=== PATIENT | female | born 1990 | race Caucasian/White ===

== ENCOUNTER → 2017-11-04 13:26 | Outpatient (CLI) | payer OTHER, SELFPAY ==
[2017-11-04 15:38] LABS: Add Manual Diff / Slide Review NO; Basophils Percent Auto 0.5 % (0-2); Hematocrit 41.5 % (36-46); Hemoglobin 14.6 g/dL (12.0-16.0); Lymphocytes Percent Auto 25.1 % (25-40); Mean Corpuscular HGB Conc 35.1 % (30-36); Mean Corpuscular Hemoglobin 30.8 PG (26-34); Mean Corpuscular Volume 87.8 fL (80-100); Monocytes Percent Auto 7.1 % (3-14); Neutrophils Absolute Auto 6500 /uL (3000-5900); Neutrophils Percent Auto 65.3 % (50-75); Platelet Count 157 X10^3/uL (150-400); Red Blood Cell Count 4.73 X10^6/uL (4.0-5.2); Red Cell Distribution Width 13.9 % (11.6-14.8); White Blood Cell Count 9.9 X10^3/uL (4.5-11.0)
[2017-11-04 19:03] LABS: HIV 1 and 2 Antibody NEGATIVE (NEGATIVE); Hep C Virus Ab w/Reflex Quant NEGATIVE s/c (NEGATIVE); Hepatitis B Surface Antigen NEGATIVE s/c (NEGATIVE)
[2017-11-04 19:38] LABS: Appearance Urine UA CLEAR; Bilirubin Urine UA NEGATIVE (NEGATIVE); Color Urine UA YELLOW; Glucose Urine UA NEGATIVE (Negative); Ketones Urine UA NEGATIVE (NEGATIVE); Leukocyte Esterase Urine UA NEGATIVE (NEGATIVE); Nitrite Urine UA NEGATIVE (NEGATIVE); Occult Blood Urine UA NEGATIVE (Negative); Protein Urine UA NEGATIVE (Negative); Specific Gravity Urine UA 1.025 (1.000-1.035); Urobilinogen Urine UA 0.2 E.U./dL (0.2)
[2017-11-04 19:46] LABS: Bacteria Urine Occasional (0-1); Culture Indicated Urine Cult Not Indicated; Mucus Urine 1+ (Negative); RBC Urine 0-1/HPF (0-5/HPF); Squamous Epithelial Cell Urine 1-5 /HPF; WBC Urine 1-5/HPF (0-5/HPF)
[2017-11-06 14:27] LABS: HSV 2 IGG AB < 0.90 index (< 0.90); HSV1IGG 7.35 index (< 0.90)
[2017-11-07 12:51] LABS: Rapid Plasma Reagin NON-REACTIVE
== END ==
PROVIDERS: PCP Obstetrics & Gynecology; Visit Provider Obstetrics & Gynecology
DX: Z34.90 Encounter for supervision of normal pregnancy, unspecified, unspecified trimester (principal); Z34.91 Encounter for supervision of normal pregnancy, unspecified, first trimester
CPT/HCPCS: 36415; 80055; 86787; 86850; 86900; 86901; 87086

== ENCOUNTER → 2017-12-10 15:06 | Outpatient (CLI) | payer OTHER, SELFPAY ==
[2017-12-23 09:21] LABS: Calc Gestational Age 16.3; Cigarette Smoker N; Donated Egg NOT GIVEN; Donor Egg Age NOT GIVEN; Estriol, Free 0.82 ng/mL; Inhibin A, Dimeric 126 pg/mL; Maternal Weight 283 lbs; Number of Fetuses NOT GIVEN; Previous Pregnancy Down Syndro NOT GIVEN; hCG, MoM 0.88; hCG, Serum 20.6 IU/mL
== END ==
PROVIDERS: PCP Obstetrics & Gynecology; Visit Provider Obstetrics & Gynecology
DX: Z34.82 Encounter for supervision of other normal pregnancy, second trimester (principal)
CPT/HCPCS: 36415; 82105; 82677; 84702; 86336

== ENCOUNTER → 2018-01-15 13:16 | Outpatient (CLI) | payer OTHER, SELFPAY ==
--- NOTE | 2018-01-15 13:19 | DI.US.S_ITS ---
PROCEDURE: US OB >= 14 WEEKS FETUS INDICATIONS: ANATOMY SURVEY OUTSIDE/PRIOR DATING DATA: Last menstrual period (LMP): 08/18/17. LMP-based estimated date of delivery (BASIA): 06/09/18. First dating scan (date and location): 11/04/17. Estimated date of delivery (BASIA) from first dating scan: 05/25/18. TECHNIQUE: Real-time scanning was performed of the fetus, with image documentation and biometric measurements. Endovaginal scanning: No COMPARISON: [facility], , OB >= 14 WEEKS FETUS, 12/10/2017, 14:56. FINDINGS: General: A single living intrauterine gestation is present. Presentation: Vertex. Placenta: Placental position is posterior, without previa. Amniotic fluid index: 13.9 cm, normal range is 5-24 cm. heart rate: 143 beats per minute. Maternal cervical canal: 3.8 cm long. Normal lower limit is 2.5 cm. biometrics: Biparietal diameter: 21 weeks 2 days Head circumference: 21 weeks 1 day Abdominal circumference: 21 weeks 1 day Femur length: 21 weeks 2 days Estimated gestational age from initial scan: 21 weeks 3 days Composite gestational age from present scan: 21 weeks 2 days Estimated weight and percentile: 404 g; 31st percentile Measurement variability for biometric dating: +/- 7 days from 14 weeks to 15 weeks 6 days gestation, +/- 10 days from 16 weeks to 21 weeks 6 days gestation, +/- 2 weeks from 22 weeks to 27 weeks 6 days gestation, +/- 3 weeks for 28 weeks gestation or later. weight reference: 4500 g or EFW >90/95% is considered macrosomia or large for gestational age. EFW <10% is small for gestational age. EFW 5% or less is considered intra-uterine growth restriction. Anatomic survey: Neuro: Ventricles are non-dilated at less than 10 mm. Cisterna magna and cerebellum not well-visualized. Nuchal skin fold: Normal at less than 6 mm between 14-21 weeks gestational age. Face: Not well-seen. Spine: No evidence for spina bifida. Heart: Not well-seen. Diaphragm: Diaphragm is intact. Stomach: Left-sided stomach is present. Kidneys: No hydronephrosis. Normal is less than 5 mm in 2nd trimester, less than 7 mm in 3rd trimester. Cord: 3-vessel cord has orthotopic insertion. Bladder: Normal in size. Extremities: All 4 extremities identified. IMPRESSION: 1. Normal interval growth. 2. Limited anatomic survey. Followup ultrasound recommended. Dictated by: Memo ARDON Interpreted: Lilia Aguero MD on 01/15/2018 at 16:27 Approved by: Estella Hawthorne MD, PhD on 01/15/2018 at 16:45
== END ==
PROVIDERS: PCP Physician Assistant; Visit Provider Obstetrics & Gynecology
DX: Z36.89 Encounter for other specified antenatal screening (principal); Z34.82 Encounter for supervision of other normal pregnancy, second trimester; Z3A.21 21 weeks gestation of pregnancy
CPT/HCPCS: 76811

== ENCOUNTER → 2018-02-12 16:01 | Outpatient (CLI) | payer OTHER, SELFPAY ==
[2018-02-12 17:57] LABS: Hematocrit 36.9 % (36-46); Hemoglobin 12.7 g/dL (12.0-16.0)
[2018-02-12 18:10] LABS: GTT (PREG) 1 Hour PP 50gm Dose 94 mg/dL (76-139)
== END ==
PROVIDERS: PCP Physician Assistant; Visit Provider Obstetrics & Gynecology
DX: Z34.82 Encounter for supervision of other normal pregnancy, second trimester (principal)
CPT/HCPCS: 36415; 82950; 85014; 85018; 86850

== ENCOUNTER 2018-03-26 16:30 | Outpatient (CLI) | payer OTHER, SELFPAY ==
[2018-03-26 18:08] LABS: Platelet Count 145 X10^3/uL (150-400)
[2018-03-26 18:21] LABS: Aspartate Aminotransferase 21 IU/L (14-36); BUN Creatinine Ratio 18.3 (6-22); Blood Urea Nitrogen 11 mg/dL (7-17); Estimated Glomerular Filt Rate > 60.0 mL/min (>60); Uric Acid 4.3 mg/dL (2.5-6.2)
[2018-03-26 18:43] LABS: Hemoglobin 11.8 g/dL (12.0-16.0)
[2018-03-29 18:28] LABS: Bile Acids, Total 7.8 umol/L (< 10.1)
== END 2018-03-26 18:42 | disposition home or self-care (01) ==
LOC: LAB 16:31
PROVIDERS: PCP Physician Assistant; Visit Provider Obstetrics & Gynecology
DX: O99.712 Diseases of the skin and subcutaneous tissue complicating pregnancy, second trimester (principal); L29.9 Pruritus, unspecified
CPT/HCPCS: 36415; 59025; 82239; 84450; 84550; 85014; 85018; 85049; G0378

== ENCOUNTER → 2018-04-24 13:05 | Outpatient (CLI) | payer OTHER, MEDICAID, SELFPAY ==
[2018-04-25 14:13] LABS: Strep Grp B PCR POS for Grp B Strep
== END ==
PROVIDERS: PCP Physician Assistant; Visit Provider Obstetrics & Gynecology
DX: Z3A.35 35 weeks gestation of pregnancy (principal)
CPT/HCPCS: 87653

== ENCOUNTER 2018-04-26 22:28 | Outpatient (CLI) | payer OTHER, MEDICAID, SELFPAY | END 2018-04-26 23:30 | disposition home or self-care (01) | LOC: OB 04-28 07:00 | PROVIDERS: PCP Physician Assistant; Visit Provider Family Medicine | DX: Z34.83 Encounter for supervision of other normal pregnancy, third trimester (principal); Z3A.35 35 weeks gestation of pregnancy | CPT/HCPCS: 59025; G0378; G0379 ==

== ENCOUNTER 2018-05-11 13:09 | Observation (INO) | payer OTHER, MEDICAID, SELFPAY ==
[2018-05-11 14:32] LABS: Add Manual Diff / Slide Review NO; Basophils Percent Auto 0.7 % (0-2); Eosinophils Percent Auto 1.1 % (2-4); Hematocrit 36.1 % (36-46); Hemoglobin 12.1 g/dL (12.0-16.0); Lymphocytes Percent Auto 16.3 % (25-40); Mean Corpuscular HGB Conc 33.4 % (30-36); Mean Corpuscular Hemoglobin 29.6 PG (26-34); Mean Corpuscular Volume 88.6 fL (80-100); Monocytes Percent Auto 6.6 % (3-14); Neutrophils Absolute Auto 8900 /uL (3000-5900); Neutrophils Percent Auto 75.3 % (50-75); Platelet Count 167 X10^3/uL (150-400); Red Blood Cell Count 4.08 X10^6/uL (4.0-5.2); Red Cell Distribution Width 13.9 % (11.6-14.8); White Blood Cell Count 11.8 X10^3/uL (4.5-11.0)
[2018-05-11] MEDS: LACTATED RINGERS 1,000 ML 1000 ML IV (14:37)
[2018-05-11] MEDS: ONDANSETRON 4 MG/2 ML INJ IV (14:37)
[2018-05-11 14:46] LABS: Alanine Aminotransferase 26 IU/L (9-52); Albumin 3.6 g/dL (3.5-5.0); Albumin Globulin Ratio 1.3 (1.0-2.8); Alkaline Phosphatase 83 U/L (38-126); Aspartate Aminotransferase 20 IU/L (14-36); Bilirubin Total 0.4 mg/dL (0.2-1.3); Blood Urea Nitrogen 9 mg/dL (7-17); Calcium 8.7 mg/dL (8.4-10.2); Carbon Dioxide 21 mmol/L (22-32); Chloride 106 mmol/L (98-107); Estimated Glomerular Filt Rate > 60.0 mL/min (>60); Globulin 2.7 g/dL (1.7-4.1); Glucose 80 mg/dL (70-100); HEMOLYSIS < 15 (0-50); Potassium 4.1 mmol/L (3.4-5.1); Sodium 137 mmol/L (137-145); Total Protein 6.3 g/dL (6.3-8.2); Uric Acid 4.3 mg/dL (2.5-6.2)
[2018-05-11] MEDS: CALCIUM CARBONATE 500 MG TAB 1000 MG PO (14:55)
[2018-05-11 15:03] VITALS: TEMP 36.2
[2018-05-11] MEDS: ACETAMINOPHEN 325 MG TABLET 650 MG PO (15:03)
--- NOTE | 2018-05-11 15:28 | P.TNLD_ITS ---
Visit Information Visit Information Date of evaluation: 05/11/18 Primary OB Provider: Johnna Jacobson On-call OB Provider: Lilly Hopkins Reason for Evaluation: Yes other Comments/Additional reasons for admission: Left upper quadrant pain and not feeling well with headache, nausea vomiting and a small amount diarrhea Vital Signs Vital Signs: Vital Signs - 8 hr Blood pressure 139/65, pulse of 86 05/11/18 15:03 Temperature 97.2 F L PFSH Medical History Asthma (Acute) Migraines (Acute) Surgical History H/O dilation and curettage (Acute) Hx laparoscopic cholecystectomy (Acute) Review of Systems Review of Systems Bad headache but not similar to her migraines. Patient just does not feel well. She has nausea with some episodes of emesis. She has a small amount of diarrhea. Her main complaint is severe left upper quadrant pain. Even just touching the skin is painful. Patient denies fevers or chills. No vaginal bleeding. All systems reviewed & are unremarkable except as noted in HPI and below Exam Vital Signs (past 8 hours): - 05/11/18 15:03 Temperature 97.2 F L Narrative Exam Narrative: Patient refused to have me touch her upper abdomen. Her lower abdomen is nontender. Vaginal exam by the nursing staff was unchanged from the office. She does not have significant edema of her extremities with no pain. DTRs are normal. Objective Labs Result Diagrams: 05/11/18 14:25 05/11/18 14:25 Labs: Laboratory Results - last 24 hr 05/11/18 05/11/18 14:25 14:25 WBC 11.8 H RBC 4.08 Hgb 12.1 Hct 36.1 MCV 88.6 MCH 29.6 MCHC 33.4 RDW 13.9 Plt Count 167 Neut % (Auto) 75.3 H Lymph % (Auto) 16.3 L [place] % (Auto) 6.6 Eos % (Auto) 1.1 L Baso % (Auto) 0.7 Neut # (Auto) 8900 H Sodium 137 Potassium 4.1 Chloride 106 Carbon Dioxide 21 L BUN 9 Creatinine 0.50 L Estimated GFR > 60.0 BUN/Creatinine Ratio 18.0 Glucose 80 Uric Acid 4.3 Calcium 8.7 Total Bilirubin 0.4 AST 20 ALT 26 Alkaline Phosphatase 83 Total Protein 6.3 Albumin 3.6 Globulin 2.7 Albumin/Globulin Ratio 1.3 Evaluation Evaluation Baseline heart rate: 130 Variability: Marked (>25) monitor accelerations: Present monitor decelerations: Absent Contraction Frequency (minutes): 10 Uterine Contraction Intensity: Mild Category of Tracing: I Laboratory results: Laboratory Tests 05/11/18 05/11/18 14:25 14:25 WBC 11.8 H RBC 4.08 Hgb 12.1 Hct 36.1 MCV 88.6 MCH 29.6 MCHC 33.4 RDW 13.9 Plt Count 167 Neut % (Auto) 75.3 H Lymph % (Auto) 16.3 L [place] % (Auto) 6.6 Eos % (Auto) 1.1 L Baso % (Auto) 0.7 Neut # (Auto) 8900 H Sodium 137 Potassium 4.1 Chloride 106 Carbon Dioxide 21 L BUN 9 Creatinine 0.50 L Estimated GFR > 60.0 BUN/Creatinine Ratio 18.0 Glucose 80 Uric Acid 4.3 Calcium 8.7 Total Bilirubin 0.4 AST 20 ALT 26 Alkaline Phosphatase 83 Total Protein 6.3 Albumin 3.6 Globulin 2.7 Albumin/Globulin Ratio 1.3 Diagnosis, Plan/Disposition Final Diagnosis (1) Viral gastroenteritis: Current Visit: Yes Status: Acute (2) 38 weeks gestation of : Current Visit: Yes Status: Acute Plan/Disposition Plan: Patient was given IV fluids, Tylenol, Tums. She is to push fluids and rest. Keep her previously scheduled OB appointment. Call if she has any changes. OB Disposition: home
== END 2018-05-11 15:45 | disposition home or self-care (01) ==
PROVIDERS: Specialist; Admitting Provider Obstetrics & Gynecology; PCP Physician Assistant; Visit Provider Obstetrics & Gynecology
DX: Z34.83 Encounter for supervision of other normal pregnancy, third trimester (principal); Z3A.38 38 weeks gestation of pregnancy
CPT/HCPCS: 36415; 59025; 59050; 80053; 84450; 84550; 85025; 96360; G0378; G0379; J2405

== ENCOUNTER 2018-05-12 06:42 | Outpatient (CLI) | payer OTHER, MEDICAID, SELFPAY ==
--- NOTE | 2018-05-12 10:38 | PM.OBTRLD ---
Visit Information Visit Information Date of evaluation: 05/12/18 Primary OB Provider: Johnna Jacobson On-call OB Provider: Lilly Hopkins Reason for Evaluation: Yes non-stress test non-stress test reason: decreased movement and Yes rupture of membranes PFSH Medical History Asthma (Acute) Migraines (Acute) Surgical History H/O dilation and curettage (Acute) Hx laparoscopic cholecystectomy (Acute) Evaluation Evaluation Baseline heart rate: 140 Variability: Average (6-10) monitor accelerations: Present monitor decelerations: Absent Contraction Frequency (minutes): 0 Non-invasive Membranes Rupture Test: negative Diagnosis, Plan/Disposition Final Diagnosis (1) 39 weeks gestation of : Current Visit: No Status: Acute (2) Decreased movement affecting management of mother, antepartum: Current Visit: No Status: Acute Plan/Disposition Plan: Patient had come in concerned of possible rupture membranes and decreased movement. Testing for rupture membranes was negative and nonstress test is reactive. Patient reassured. Keep her normal OB appointment.
== END 2018-05-12 07:30 | disposition home or self-care (01) ==
LOC: LABOR 06:50 → OB 15:45
PROVIDERS: PCP Physician Assistant; Visit Provider Specialist
DX: Z3A.39 39 weeks gestation of pregnancy (principal); Z34.83 Encounter for supervision of other normal pregnancy, third trimester; O36.8190 Decreased fetal movements, unspecified trimester, not applicable or unspecified
CPT/HCPCS: 59025; 84112; G0378; G0379

== ENCOUNTER 2018-05-19 06:56 | Inpatient (IN) | payer OTHER, MEDICAID, SELFPAY ==
[2018-05-19] MEDS: LACTATED RINGERS 1,000 ML 125 ML IV (07:30)
[2018-05-19] MEDS: PENICILLIN G POTASSIUM 5,000,000 UNIT in DEXTROSE 5% IN WATER 250 ML IV (07:40)
[2018-05-19] MEDS: OXYTOCIN PREMIX 30 UNIT/500 ML PLAST..BAG IV (07:58)
[2018-05-19 08:01] LABS: Add Manual Diff / Slide Review NO; Basophils Percent Auto 0.6 % (0-2); Eosinophils Percent Auto 1.5 % (2-4); Hematocrit 35.2 % (36-46); Hemoglobin 11.8 g/dL (12.0-16.0); Lymphocytes Percent Auto 9.2 % (25-40); Mean Corpuscular HGB Conc 33.6 % (30-36); Mean Corpuscular Hemoglobin 29.7 PG (26-34); Mean Corpuscular Volume 88.5 fL (80-100); Monocytes Percent Auto 9.8 % (3-14); Neutrophils Absolute Auto 6600 /uL (3000-5900); Neutrophils Percent Auto 78.9 % (50-75); Platelet Count 159 X10^3/uL (150-400); Red Blood Cell Count 3.98 X10^6/uL (4.0-5.2); Red Cell Distribution Width 14.4 % (11.6-14.8); White Blood Cell Count 8.4 X10^3/uL (4.5-11.0)
[2018-05-19 09:02] VITALS: BP 124/70
[2018-05-19] MEDS: PENICILLIN G POTASSIUM 3,000,000 UNIT/50 ML FROZ.PIGGY 100 UNIT IV ×2 (11:54→16:03)
[2018-05-19] MEDS: ONDANSETRON 4 MG/2 ML INJ IV (14:31)
[2018-05-19] MEDS: METOCLOPRAMIDE 10 MG/2 ML INJ IV (16:37)
[2018-05-20] MEDS: IBUPROFEN 600 MG TABLET PO ×3 (00:24→13:50)
[2018-05-20] MEDS: LANOLIN OINT 7 GM 1 APPLIC TOP (02:52)
[2018-05-20 07:16] LABS: Hemoglobin 11.7 g/dL (12.0-16.0)
[2018-05-20] MEDS: PRENATAL VIT,CALC/IRON/FOLIC 1 TABLET 1 TAB PO (09:30)
[2018-05-20 17:36] VITALS: BP 122/71; PULSE 70; RESP 16; TEMP 36.5
--- NOTE | 2018-07-17 14:16 | PM.OBPRVD ---
Events: Labor < 37 Weeks Delivery date: 05/19/18 Intrapartal events: None Cervical ripening method: none Induction method: per pitocin protocol Delivery augmentation: rupture of membranes Delivery monitor: external FHT and external uterine Route of delivery: Episiotomy description: None L&D Laceration Description: None Estimated blood loss (mL): 250 Anesthesia type: Epidural Complications: None Narrative: Patient complete and pushed for 14 min. At 5:14 p.m., a live female delivered spontaneously over an intact perineum. 1 loose nuchal cord reduced on the perineum. The remainder of the body delivered without difficulty and was placed on mom's abdomen. The cord was double clamped and cut. Cord bloods were obtained. Placenta delivered intact with a 3 vessel cord at 5:19 p.m.. Fundus was massaged to firm. Pitocin was given in the IV fluids. Apgars 9 at 1 min and 9 at 5 min. Weight 8 lb 0.4 oz. Epidural analgesia. . Mom and stable to recovery. Plan for aftercare: To routine care
== END 2018-05-20 18:38 | disposition home or self-care (01) | DRG 560 ==
PROVIDERS: Admitting Provider Obstetrics & Gynecology; PCP Physician Assistant; Visit Provider Obstetrics & Gynecology
DX: O99.824 Streptococcus B carrier state complicating childbirth (principal); Z3A.39 39 weeks gestation of pregnancy; Z37.0 Single live birth; O69.81X0 Labor and delivery complicated by cord around neck, without compression, not applicable or unspecified
CPT/HCPCS: 01967; 36415; 59050; 59409; 85014; 85018; 85025; 86850; 86900; 86901; G0379; J2405; J2540; J2590; J2765

== ENCOUNTER → 2018-11-11 15:38 | Outpatient (CLI) | payer OTHER, MEDICAID, SELFPAY ==
[2018-11-11 17:47] LABS: HCG Quantitative /Beta subunit 20490 mIU/mL
== END ==
PROVIDERS: PCP Physician Assistant; Visit Provider Obstetrics & Gynecology
DX: N91.2 Amenorrhea, unspecified (principal)
CPT/HCPCS: 36415; 84702

== ENCOUNTER → 2018-12-16 16:09 | Outpatient (CLI) | payer OTHER, MEDICAID, SELFPAY ==
[2018-12-16 17:04] LABS: Add Manual Diff / Slide Review NO; Basophils Absolute Auto 100 /uL (0-100); Basophils Percent Auto 0.9 % (0-2); Eosinophils Absolute Auto 300 /uL (0-450); Eosinophils Percent Auto 3.6 % (2-4); Hematocrit 44.4 % (36-46); Hemoglobin 14.9 g/dL (12.0-16.0); Lymphocytes Absolute Auto 2200 /uL (1100-4500); Lymphocytes Percent Auto 32.1 % (25-40); Mean Corpuscular HGB Conc 33.6 % (30-36); Mean Corpuscular Hemoglobin 29.4 PG (26-34); Mean Corpuscular Volume 87.2 fL (80-100); Monocytes Absolute Auto 700 /uL (0-900); Monocytes Percent Auto 9.5 % (3-14); Neutrophils Absolute Auto 3700 /uL (1500-7000); Neutrophils Percent Auto 53.9 % (50-75); Platelet Count 144 X10^3/uL (150-400); Red Blood Cell Count 5.09 X10^6/uL (4.0-5.2); Red Cell Distribution Width 15.3 % (11.6-14.8); White Blood Cell Count 6.9 X10^3/uL (4.5-11.0)
[2018-12-16 17:07] LABS: Appearance Urine UA CLEAR; Bilirubin Urine UA NEGATIVE (NEGATIVE); Color Urine UA YELLOW; Glucose Urine UA NEGATIVE (Negative); Ketones Urine UA NEGATIVE (NEGATIVE); Leukocyte Esterase Urine UA NEGATIVE (NEGATIVE); Nitrite Urine UA NEGATIVE (Negative); Occult Blood Urine UA NEGATIVE (Negative); Protein Urine UA NEGATIVE (Negative); Specific Gravity Urine UA >=1.030 (1.000-1.035); Urobilinogen Urine UA 0.2 E.U./dL (0.2)
[2018-12-16 17:55] LABS: HCG Quantitative /Beta subunit 7818.3 mIU/mL
[2018-12-16 18:49] LABS: Hepatitis B Surface Antigen NEGATIVE s/c (NEGATIVE)
[2018-12-16 19:08] LABS: Urine Chlamydia NOT DETECTED; Urine N gonorrhoeae NOT DETECTED
[2018-12-16 19:13] LABS: HIV 1 and 2 Antibody NEGATIVE (NEGATIVE); Hep C Virus Ab w/Reflex Quant NEGATIVE s/c (NEGATIVE)
[2018-12-19 15:14] LABS: RPR Screen Nonreactive (Nonreactive)
== END ==
PROVIDERS: PCP Physician Assistant; Visit Provider Obstetrics & Gynecology
DX: Z34.81 Encounter for supervision of other normal pregnancy, first trimester (principal)
CPT/HCPCS: 36415; 80055; 81003; 84702; 86703; 86787; 86803; 86850; 86900; 86901; 87086; 87491; 87591

== ENCOUNTER → 2018-12-19 09:03 | Outpatient (CLI) | payer OTHER, MEDICAID, SELFPAY ==
[2018-12-19 11:21] LABS: HCG Quantitative /Beta subunit 4256.6 mIU/mL
== END ==
PROVIDERS: PCP Physician Assistant; Visit Provider Obstetrics & Gynecology
DX: O20.0 Threatened abortion (principal)
CPT/HCPCS: 36415; 84702

== ENCOUNTER → 2020-06-22 11:59 | Outpatient (CLI) | payer OTHER, MEDICAID, SELFPAY ==
--- NOTE | 2020-06-22 12:00 | DI.US.S_ITS ---
PROCEDURE: US OB <= 14 WEEKS FETUS INDICATIONS: DATES OUTSIDE/PRIOR DATING DATA: Last menstrual period (LMP): March 30, 2020 LMP-based estimated date of delivery (BASIA): January 04, 2021. First dating scan (date and location): June 22, 2020. Estimated date of delivery (BASIA) from first dating scan: January 28, 2021. TECHNIQUE: Real-time scanning was performed of the fetus and maternal pelvic organs, with image documentation. Endovaginal scanning was also performed to better visualize the fetus and maternal ovaries. COMPARISON: None. FINDINGS: Embryo: There is a single living intrauterine gestation with an estimated sonographic gestational age of approximately 8 weeks and 4 days based off crown-rump length measuring approximately 2.0 cm. heart rate measured 173 beats per minute. Normal yolk sac is visualized. No perigestational hemorrhage. Measurement variability in dating: +/- 4 weeks by LMP, +/- 7 days by mean sac diameter (use before 6 weeks gestation if crown-rump length not able to be measured), +/- 5 days by crown-rump length (up to 8 weeks 6 days gestation), +/- 7 days by crown-rump length (up to 13 weeks 6 days gestation). Maternal organs: Ovaries were not visualized on today's study. There are prominent retroplacental veins adjacent to the gestational sac and internal cervical os. Limited images through the kidneys demonstrate no hydronephrosis. IMPRESSION: 1. Single living intrauterine gestation with an estimated sonographic gestational age of approximately 8 weeks and 4 days and estimated delivery date of approximately January 28, 2021. 2. Prominent retroplacental veins noted near the gestational sac and internal cervical os without evidence for perigestational hemorrhage. Recommend continued clinical surveillance with follow-up imaging as needed. 3. Recommend routine second-trimester anatomic screening survey. Dictated by: Juan F Gonzales M.D. on 06/22/2020 at 12:43 Approved by: Juan F Gonzales M.D. on 06/22/2020 at 12:57
== END ==
PROVIDERS: PCP Physician Assistant; Referring Provider Obstetrics & Gynecology; Visit Provider Obstetrics & Gynecology
DX: Z34.81 Encounter for supervision of other normal pregnancy, first trimester (principal); Z3A.08 8 weeks gestation of pregnancy
CPT/HCPCS: 76801; 76817

== ENCOUNTER → 2020-07-22 17:49 | Outpatient (CLI) | payer OTHER, MEDICAID, SELFPAY ==
[2020-07-22 17:52] LABS: RBC Urine None Seen (0-5/HPF)
[2020-07-22 18:09] LABS: Add Manual Diff / Slide Review NO; Basophils Absolute Auto 100 /uL (0-100); Basophils Percent Auto 0.9 % (0-2); Eosinophils Absolute Auto 300 /uL (0-450); Eosinophils Percent Auto 4.1 % (2-4); Hematocrit 39.2 % (36-46); Hemoglobin 12.9 g/dL (12.0-16.0); Lymphocytes Absolute Auto 2200 /uL (1100-4500); Lymphocytes Percent Auto 28.9 % (25-40); Mean Corpuscular HGB Conc 32.8 % (30-36); Mean Corpuscular Hemoglobin 26.3 PG (26-34); Mean Corpuscular Volume 80.1 fL (80-100); Monocytes Absolute Auto 600 /uL (0-900); Monocytes Percent Auto 7.4 % (3-14); Neutrophils Absolute Auto 4500 /uL (1500-7000); Neutrophils Percent Auto 58.7 % (50-75); Platelet Count 156 X10^3/uL (150-400); White Blood Cell Count 7.6 X10^3/uL (4.5-11.0)
[2020-07-22 18:14] LABS: Appearance Urine UA SL CLOUDY; Bilirubin Urine UA NEGATIVE (NEGATIVE); Glucose Urine UA NEGATIVE (Negative); Ketones Urine UA 1+ (NEGATIVE); Leukocyte Esterase Urine UA TRACE (NEGATIVE); Nitrite Urine UA NEGATIVE (Negative); Occult Blood Urine UA NEGATIVE (Negative); Protein Urine UA NEGATIVE (Negative); Specific Gravity Urine UA 1.015 (1.000-1.035); Urobilinogen Urine UA 0.2 E.U./dL (0.2)
[2020-07-22 18:22] LABS: pH Urine UA 5.5 (4.5-8.0)
[2020-07-22 18:23] LABS: Color Urine UA Straw
[2020-07-22 18:36] LABS: WBC Urine 5-10/HPF (0-5/HPF)
[2020-07-22 18:37] LABS: Amorphous Sediment Urine 1+; Bacteria Urine Few (2-10); Squamous Epithelial Cell Urine 1-5 /HPF (0-5/HPF)
[2020-07-22 19:29] LABS: Hepatitis B Surface Antigen NEGATIVE s/c (NEGATIVE)
[2020-07-22 19:43] LABS: HIV 1 & 2 Ab/Ag 4th Gen Combo NEGATIVE (NEGATIVE); Hep C Virus Ab w/Reflex Quant NEGATIVE s/c (NEGATIVE)
[2020-07-23 04:16] LABS: RPR Screen Non Reactive (Non Reactive)
[2020-07-23 07:09] LABS: Varicella IgG Antibody 619 index (Immune >165)
== END ==
PROVIDERS: Referring Provider Obstetrics & Gynecology; Visit Provider Obstetrics & Gynecology
DX: Z34.81 Encounter for supervision of other normal pregnancy, first trimester (principal); N39.0 Urinary tract infection, site not specified
CPT/HCPCS: 36415; 80055; 81001; 86787; 86803; 86850; 86900; 86901; 87086; 87389

== ENCOUNTER → 2020-08-22 10:58 | Outpatient (CLI) | payer OTHER, MEDICAID, SELFPAY ==
[2020-08-22 12:24] LABS: Add Manual Diff / Slide Review NO; Basophils Absolute Auto 0 /uL (0-100); Basophils Percent Auto 0.5 % (0-2); Eosinophils Absolute Auto 500 /uL (0-450); Eosinophils Percent Auto 4.5 % (2-4); Hematocrit 35.1 % (36-46); Hemoglobin 11.7 g/dL (12.0-16.0); Lymphocytes Absolute Auto 2400 /uL (1100-4500); Lymphocytes Percent Auto 24.6 % (25-40); Mean Corpuscular HGB Conc 33.4 % (30-36); Mean Corpuscular Hemoglobin 26.6 PG (26-34); Mean Corpuscular Volume 79.6 fL (80-100); Monocytes Absolute Auto 700 /uL (0-900); Monocytes Percent Auto 6.8 % (3-14); Neutrophils Absolute Auto 6300 /uL (1500-7000); Neutrophils Percent Auto 63.6 % (50-75); Platelet Count 231 X10^3/uL (150-400); Red Cell Distribution Width 16.7 % (11.6-14.8)
[2020-08-22 12:47] LABS: Free T4, Direct Thyroxine 0.89 ng/dL (0.78-2.19)
[2020-08-22 13:01] LABS: Thyroid Stimulating Hormone 2.22 uIU/mL (0.47-4.68)
[2020-08-25 19:36] LABS: AFP, Serum 24.8 ng/mL (.); Inhibin A, Dimeric 76.83 pg/mL (.); Inhibin A, MoM 0.65 (.); Maternal Ethnicity Caucasian (.); Maternal Weight 265 lbs (.); Number of Fetuses No (.); OSBR Risk 1 IN 10000 (.); Results Report (.); Test Results *Screen Negative* (.); hCG, MoM 0.43 (.); hCG, Serum 10511 mIU/mL (.)
== END ==
PROVIDERS: Referring Provider Obstetrics & Gynecology; Visit Provider Obstetrics & Gynecology
DX: Z34.82 Encounter for supervision of other normal pregnancy, second trimester (principal); F32.9 Major depressive disorder, single episode, unspecified; Z41.9 Encounter for procedure for purposes other than remedying health state, unspecified; Z3A.17 17 weeks gestation of pregnancy
CPT/HCPCS: 36415; 82105; 82677; 84439; 84443; 84702; 85025; 86336

== ENCOUNTER → 2020-09-13 10:42 | Outpatient (CLI) | payer OTHER, MEDICAID, SELFPAY ==
--- NOTE | 2020-09-13 10:43 | DI.US.S_ITS ---
PROCEDURE: OB >= 14 WEEKS FETUS INDICATIONS: Anatomy Scan OUTSIDE/PRIOR DATING DATA: Last menstrual period (LMP): March 30, 2020. LMP-based estimated date of delivery (BASIA): January 04, 2021 First dating scan (date and location): June 22, 2020. Estimated date of delivery (BASIA) from first dating scan: January 28, 2021. TECHNIQUE: Real-time scanning was performed of the fetus, with image documentation and biometric measurements. Endovaginal scanning: Performed COMPARISON: [facility], OB >= 14 WEEKS FETUS, 08/22/2020, 11:25. [facility] OB <= 14 WEEKS FETUS, 07/25/2020, 15:18. [facility] OB <= 14 WEEKS FETUS, 06/22/2020, 12:09. FINDINGS: General: A single living intrauterine gestation is present. Presentation: Breech Placenta: Placental position is posterior, without previa. Amniotic fluid index: 11.8 cm, normal range is 5-24 cm. heart rate: 150 beats per minute. Maternal cervical canal: Closed and 4.2 cm long. Normal lower limit is 2.5 cm. biometrics: Biparietal diameter: 19 weeks 5 days Head circumference: 20 weeks 1 days Abdominal circumference: 22 weeks 4 days Femur length: 20 weeks 6 days Estimated gestational age from initial scan: 20 weeks 3 days. Composite gestational age from present scan: 20 weeks 6 days Estimated weight and percentile: 429 grams, 94th percentile. Measurement variability for biometric dating: +/- 7 days from 14 weeks to 15 weeks 6 days gestation, +/- 10 days from 16 weeks to 21 weeks 6 days gestation, +/- 2 weeks from 22 weeks to 27 weeks 6 days gestation, +/- 3 weeks for 28 weeks gestation or later. weight reference: 4500 g or EFW >90/95% is considered macrosomia or large for gestational age. EFW <10% is small for gestational age. EFW 5% or less is considered intra-uterine growth restriction. Anatomic survey: Neuro: Ventricles are non-dilated at less than 10 mm. Cisterna magna is normal at 3-11 mm. Cerebellum is normal in size and morphology. Nuchal skin fold: Normal at less than 6 mm between 14-21 weeks gestational age. Face: Nose and lips, facial profile are normal. Spine: No evidence for spina bifida. Sacral spine not well seen due to position. Heart: 4-chambered heart is present, with normal ventricular outflow tracts. Diaphragm: Diaphragm is intact. Stomach: Left-sided stomach is present. Kidneys: No hydronephrosis. Normal is less than 5 mm in 2nd trimester, less than 7 mm in 3rd trimester. Cord: 3-vessel cord has orthotopic insertion. Bladder: Normal in size. Extremities: All 4 extremities identified. IMPRESSION: 1. Single living intrauterine with ultrasound estimated gestational age of 20 weeks 6 days and expected age of 20 weeks 3 days based on initial ultrasound. 2. Normal amniotic fluid index. 3. Estimated weight 429 grams which corresponds to 94th percentile for gestational age. 4. Poor visualization of the sacral spine due to position, recommend follow-up imaging if clinically indicated. anatomic survey otherwise normal. Dictated by: Estella Hawthorne MD, PhD on 09/13/2020 at 17:34 Approved by: Estella Hawthorne MD, PhD on 09/13/2020 at 17:40
== END ==
PROVIDERS: Referring Provider Obstetrics & Gynecology; Visit Provider Obstetrics & Gynecology
DX: Z34.82 Encounter for supervision of other normal pregnancy, second trimester (principal); Z3A.20 20 weeks gestation of pregnancy
CPT/HCPCS: 76811

== ENCOUNTER → 2020-10-31 08:57 | Outpatient (CLI) | payer OTHER, MEDICAID, SELFPAY ==
[2020-10-31 11:04] LABS: Hematocrit 33.7 % (36-46); Hemoglobin 11.1 g/dL (12.0-16.0)
[2020-10-31 12:10] LABS: GTT (PREG) 1 Hour PP 50gm Dose 116 mg/dL (76-139)
== END ==
PROVIDERS: Referring Provider Obstetrics & Gynecology; Visit Provider Obstetrics & Gynecology
DX: Z34.82 Encounter for supervision of other normal pregnancy, second trimester (principal); Z3A.26 26 weeks gestation of pregnancy
CPT/HCPCS: 36415; 82950; 85014; 85018; 86850

== ENCOUNTER 2020-12-06 09:20 | Outpatient (CLI) | payer OTHER, MEDICAID, SELFPAY ==
--- NOTE | 2020-12-06 | DI.US.S_ITS ---
PROCEDURE: US OB LIMITED INDICATIONS: CONTRACTIONS. CERVICAL LENGTH AND GROWTH OUTSIDE/PRIOR DATING DATA: Last menstrual period (LMP): Unknown LMP-based estimated date of delivery (BASIA): Unknown First dating scan (date and location): 06/22/2020 Estimated date of delivery (BASIA) from first dating scan: 01/28/2021 TECHNIQUE: Real-time scanning was performed of the fetus, with biometrics and image documentation. Endovaginal scanning: Not performed [facility], , US OB >= 14 WEEKS FETUS, 11/15/2020, 13:39. FINDINGS: A single living intrauterine gestation is present. Presentation: Breech. Placenta: Placental position is posterior right, without previa. Amniotic fluid index: 9.1 cm, normal range is 5-24 cm. heart rate: 153 beats per minute. Maternal cervical canal: 3.4 cm long. Normal lower limit is 2.5 cm. No funneling. Estimated gestational age from initial scan: 32 weeks 3 days. Estimated gestational age from current scan: 32 weeks 1 day. Estimated gestational weight: 2007 g, 44th percentile. BPD: 7.6 cm, 30 weeks 4 days. 4th percentile. HC: 29.6 cm, 32 weeks 5 days. 21st percentile. AC: 28.9 cm, 32 weeks 6 days. 63rd percentile. FL: 6.3 cm, 32 weeks 4 days. 40 second percentile. IMPRESSION: 1. [place] living intrauterine at 32 weeks 1 day based on today's ultrasound. Breech position. Estimated weight is in the 44th percentile overall. The BPD is in the 4th percentile. 2. Normal placenta and amniotic fluid. Dictated by: Waldemar Morris M.D. on 12/06/2020 at 12:21 Approved by: Waldemar Morris M.D. on 12/06/2020 at 12:28
--- NOTE | 2020-12-06 10:11 | PM.OBTRLD ---
Visit Information Visit Information Date of evaluation: 12/06/20 Primary OB Provider: Johnna Jacobson On-call OB Provider: Jeremias Marks Reason for Evaluation: Yes pre-term labor Comments/Additional reasons for admission: Patient began having pains last night and presents this morning with contractions. She denies any bleeding, leakage of fluid per vagina or change in vaginal discharge. She states her baby is active. Her contractions are irregular but in the hands and increasing in their level of intensity. [facility] Medical History Anxiety Asthma Depression Foot fracture, left GERD (gastroesophageal reflux disease) H/O transfusion of packed red blood cells (~2015) HPV in female Migraines Pneumonia PTSD (post-traumatic stress disorder) Rh negative state in antepartum period Meehan-Jesus syndrome (spontaneous vaginal delivery) (~2007) (spontaneous vaginal delivery) (~2017) Surgical History H/O colposcopy with cervical biopsy (~11/2017) H/O dilation and curettage (~2015) H/O dilation and curettage (~09/2018) H/O wisdom tooth extraction (~2018) History of esophagogastroduodenoscopy (EGD) Hx laparoscopic cholecystectomy Family History Mother Depression Anxiety Panic attacks Father Arrhythmia Grandmother Diabetes mellitus Hypertension Arthritis Grandfather Adrenoleukodystrophy Grandmother Heart disease Grandfather Heart disease Altered cardiac tissue perfusion Sister Personality disorder Depression Panic attacks Anxiety Endometriosis H/O: hysterectomy Family/Other Diabetes mellitus Family/Other Altered cardiac tissue perfusion Social History marital status: number of children: 2 household members: spouse and children lives independently: Yes pets and animals: Yes education level: college (Some : [employer]) occupational status: unemployed current occupational exposures/hazards: No deepa/alevism: [employer] special deepa needs: No Smoking Status: Never smoker second hand exposure: No alcohol intake: never substance use type: does not use Exam Const General: cooperative, in distress and anxious HENMT Head: normocephalic and atraumatic Eyes General: appearance normal, both eyes and all related structures Conjunctivae: conjunctivae normal Sclera: sclerae normal EOM: EOM intact bilaterally GI Inspection: other (Gravid, FH c/w EGA) Manual OB Exam: dilated fingertip, effaced 25%, station high and other (US based CL > 3.0 cm) Psych Appearance: grossly normal Mental Status: mental status grossly normal Speech and Movement: speech and movement normal Mood: anxious mood Affect: normal affect Attitude: cooperative Thought Process: normal Thought Content: normal Judgment: judgment good Evaluation Evaluation Contraction Frequency (minutes): 4 Uterine Contraction Intensity: Moderate Category of Tracing: Reactive
[2020-12-06] MEDS: TERBUTALINE 1 MG/ML VIAL 0.25 MG SUBCUT ×2 (10:18→11:10)
[2020-12-06 10:55] LABS: Appearance Urine UA CLEAR; Bilirubin Urine UA 1+ (NEGATIVE); Color Urine UA YELLOW; Glucose Urine UA NEGATIVE (Negative); Ketones Urine UA 3+ (NEGATIVE); Leukocyte Esterase Urine UA TRACE (NEGATIVE); Nitrite Urine UA NEGATIVE (Negative); Occult Blood Urine UA NEGATIVE (Negative); Protein Urine UA 2+ (Negative); Specific Gravity Urine UA 1.025 (1.000-1.035)
[2020-12-06] MEDS: LACTATED RINGERS 1,000 ML 1000 ML IV (11:15)
[2020-12-06 11:21] LABS: Bacteria Urine Few (2-10); Culture Indicated Urine Specimen Cultured; Ictotest Urine Positive (Negative); Mucus Urine 1+ (Negative); RBC Urine 1-5/HPF (0-5/HPF); Squamous Epithelial Cell Urine 1-5 /HPF (0-5/HPF); WBC Urine 1-5/HPF (0-5/HPF)
[2020-12-06] MEDS: NIFEdipine 10 MG CAPSULE PO ×4 (12:10→13:15)
[2020-12-06] MEDS: CEFAZOLIN 1 GM VIAL 2 GM IV (12:25)
[2020-12-06 12:42] LABS: Fetal Fibronectin Positive
== END 2020-12-06 13:45 | disposition home or self-care (01) ==
LOC: LABOR 10:19 → OB 12-07 11:34
PROVIDERS: Referring Provider Obstetrics & Gynecology; Visit Provider Obstetrics & Gynecology
DX: O26.893 Other specified pregnancy related conditions, third trimester (principal); R10.30 Lower abdominal pain, unspecified; M54.9 Dorsalgia, unspecified; Z3A.32 32 weeks gestation of pregnancy
CPT/HCPCS: 59025; 59050; 76815; 81001; 82731; 87086; 96360; G0378; G0379; J0690

== ENCOUNTER → 2021-04-03 15:21 | Outpatient (CLI) | payer OTHER, MEDICAID, SELFPAY ==
[2021-04-03 17:01] LABS: HCG Quantitative /Beta subunit 8280 mIU/mL
== END ==
PROVIDERS: Referring Provider Obstetrics & Gynecology; Visit Provider Obstetrics & Gynecology
DX: N91.2 Amenorrhea, unspecified (principal)
CPT/HCPCS: 36415; 84702

== ENCOUNTER → 2021-04-05 15:41 | Outpatient (CLI) | payer OTHER, MEDICAID, SELFPAY ==
[2021-04-05 18:24] LABS: HCG Quantitative /Beta subunit 14492 mIU/mL
== END ==
PROVIDERS: Referring Provider Obstetrics & Gynecology; Visit Provider Obstetrics & Gynecology
DX: N91.2 Amenorrhea, unspecified (principal)
CPT/HCPCS: 36415; 84702

== ENCOUNTER → 2021-06-21 16:00 | Outpatient (CLI) | payer OTHER, MEDICAID, SELFPAY ==
[2021-06-21 16:51] LABS: Appearance Urine UA CLEAR; Bilirubin Urine UA NEGATIVE (NEGATIVE); Color Urine UA YELLOW; Glucose Urine UA NEGATIVE (Negative); Ketones Urine UA NEGATIVE (NEGATIVE); Leukocyte Esterase Urine UA NEGATIVE (NEGATIVE); Nitrite Urine UA NEGATIVE (Negative); Occult Blood Urine UA NEGATIVE (Negative); Protein Urine UA NEGATIVE (Negative); Specific Gravity Urine UA 1.015 (1.000-1.035); Urobilinogen Urine UA 0.2 E.U./dL (0.2)
[2021-06-21 16:52] LABS: pH Urine UA 5.5 (4.5-8.0)
[2021-06-21 17:11] LABS: Add Manual Diff / Slide Review NO; Basophils Absolute Auto 0 /uL (0-100); Basophils Percent Auto 0.5 % (0-2); Eosinophils Absolute Auto 300 /uL (0-450); Eosinophils Percent Auto 4.5 % (2-4); Hematocrit 37.9 % (36-46); Hemoglobin 13.1 g/dL (12.0-16.0); Lymphocytes Absolute Auto 2200 /uL (1100-4500); Lymphocytes Percent Auto 30.3 % (25-40); Mean Corpuscular HGB Conc 34.6 % (30-36); Mean Corpuscular Hemoglobin 28.9 PG (26-34); Mean Corpuscular Volume 83.5 fL (80-100); Monocytes Absolute Auto 600 /uL (0-900); Monocytes Percent Auto 8.4 % (3-14); Neutrophils Absolute Auto 4200 /uL (1500-7000); Neutrophils Percent Auto 56.3 % (50-75); Platelet Count 160 X10^3/uL (150-400); Red Blood Cell Count 4.54 X10^6/uL (4.0-5.2); Red Cell Distribution Width 16.5 % (11.6-14.8); White Blood Cell Count 7.4 X10^3/uL (4.5-11.0)
[2021-06-22 07:04] LABS: RPR Screen Non Reactive (Non Reactive)
[2021-06-22 10:10] LABS: Varicella IgG Antibody 425 index (Immune >165)
[2021-06-22 16:53] LABS: Hepatitis B Surface Antigen NEGATIVE s/c (NEGATIVE)
[2021-06-22 17:06] LABS: HIV 1 & 2 Ab/Ag 4th Gen Combo NEGATIVE (NEGATIVE); Hep C Virus Ab w/Reflex Quant NEGATIVE s/c (NEGATIVE)
[2021-06-23 22:12] LABS: AFP, Serum 20.1 ng/mL (.); Calc Gestational Age Ultrasound (.); Estriol, Free 1.22 ng/mL (.); Inhibin A, Dimeric 66.23 pg/mL (.); Inhibin A, MoM 0.59 (.); Maternal Ethnicity Caucasian (.); Maternal Weight 280 lbs (.); Number of Fetuses No (.); OSBR Risk 1 IN 10000 (.); Results Report (.); Test Results *Screen Negative* (.); hCG, MoM 0.81 (.); hCG, Serum 19053 mIU/mL (.)
== END ==
PROVIDERS: Referring Provider Obstetrics & Gynecology; Visit Provider Obstetrics & Gynecology
DX: Z34.81 Encounter for supervision of other normal pregnancy, first trimester (principal); Z34.82 Encounter for supervision of other normal pregnancy, second trimester; Z3A.16 16 weeks gestation of pregnancy
CPT/HCPCS: 36415; 80055; 81003; 82105; 82677; 84702; 86336; 86787; 86803; 86850; 86900; 86901; 87086; 87389

== ENCOUNTER → 2021-08-22 15:01 | Outpatient (CLI) | payer OTHER, MEDICAID, SELFPAY ==
[2021-08-22 18:05] LABS: Add Manual Diff / Slide Review NO; Basophils Absolute Auto 0 /uL (0-100); Basophils Percent Auto 0.4 % (0-2); Eosinophils Absolute Auto 400 /uL (0-450); Eosinophils Percent Auto 3.9 % (2-4); Lymphocytes Absolute Auto 2000 /uL (1100-4500); Lymphocytes Percent Auto 19.6 % (25-40); Mean Corpuscular HGB Conc 33.2 % (30-36); Mean Corpuscular Hemoglobin 28.2 PG (26-34); Monocytes Absolute Auto 600 /uL (0-900); Monocytes Percent Auto 6.3 % (3-14); Neutrophils Absolute Auto 7000 /uL (1500-7000); Neutrophils Percent Auto 69.8 % (50-75); Platelet Count 173 X10^3/uL (150-400); Red Blood Cell Count 4.24 X10^6/uL (4.0-5.2); Red Cell Distribution Width 15.2 % (11.6-14.8); White Blood Cell Count 10.1 X10^3/uL (4.5-11.0)
[2021-08-22 18:32] LABS: GTT (PREG) 1 Hour PP 50gm Dose 100 mg/dL (76-139)
== END ==
PROVIDERS: Obstetrics & Gynecology; Referring Provider Obstetrics & Gynecology; Visit Provider Obstetrics & Gynecology
DX: Z34.82 Encounter for supervision of other normal pregnancy, second trimester (principal); Z3A.25 25 weeks gestation of pregnancy
CPT/HCPCS: 36415; 82950; 85025; 86850

== ENCOUNTER → 2021-11-07 14:37 | Outpatient (CLI) | payer OTHER, MEDICAID, SELFPAY ==
[2021-11-08 15:31] LABS: Strep Grp B PCR POS for Grp B Strep
== END ==
PROVIDERS: Visit Provider Obstetrics & Gynecology
DX: Z34.83 Encounter for supervision of other normal pregnancy, third trimester (principal); Z3A.36 36 weeks gestation of pregnancy
CPT/HCPCS: 87653

== ENCOUNTER 2021-11-27 05:41 | Inpatient (IN) | payer OTHER, MEDICAID, SELFPAY ==
[2021-11-27] VITALS (8 sets, daily range): BP systolic 94–122; BP diastolic 50–68; PULSE 52–70; RESP 9–19; TEMP 36.2–36.3; O2SAT 98–100
[2021-11-27] MEDS: LACTATED RINGERS 1,000 ML 100 ML IV ×3 (06:00→17:59)
[2021-11-27 07:03] LABS: Add Manual Diff / Slide Review NO; Basophils Absolute Auto 0 /uL (0-100); Basophils Percent Auto 0.5 % (0-2); Eosinophils Absolute Auto 300 /uL (0-450); Eosinophils Percent Auto 2.6 % (2-4); Hematocrit 36.1 % (36-46); Hemoglobin 12.2 g/dL (12.0-16.0); Lymphocytes Absolute Auto 2000 /uL (1100-4500); Lymphocytes Percent Auto 18.8 % (25-40); Mean Corpuscular HGB Conc 33.7 % (30-36); Mean Corpuscular Hemoglobin 28.1 PG (26-34); Mean Corpuscular Volume 83.4 fL (80-100); Monocytes Absolute Auto 800 /uL (0-900); Monocytes Percent Auto 8.1 % (3-14); Neutrophils Absolute Auto 7300 /uL (1500-7000); Platelet Count 173 X10^3/uL (150-400); Red Blood Cell Count 4.33 X10^6/uL (4.0-5.2); Red Cell Distribution Width 16.5 % (11.6-14.8); White Blood Cell Count 10.4 X10^3/uL (4.5-11.0)
[2021-11-27 07:42] LABS: COVID19 -Nasal RAPID Negative (Negative)
--- NOTE | 2021-11-27 07:43 | P.HPOB_ITS ---
OB HPI Date/Time Date of admission: 11/27/21 Date Patient Seen: 11/27/21 Time Patient Seen: 07:43 History of Present Condition Chief complaint: maternity BASIA Calculator Estimated Delivery Date Method Current WG Current Estimate 12/04/21 LMP (Uncertain) 39w 0d Estimated Gestational Age (weeks): 39 : 6 Para: 3 care: good care, initiated at week # (8), number of visits (11) and pounds weight gain (59) Dating criteria OB: LMP confirmed by 1st trimester US Ultrasounds: normal 1st trimester US and normal mid trimester US Obstetrical complications: none Medical complications OB: none Indications Operative indications ( section): previous uterine surgery Preadmission Labs Last OB Lab Results: Blood Type A Negative 11/27/21 06:44 Antibody Screen Positive 11/27/21 06:44 Hematocrit 36.1 % (36-46) 11/27/21 06:44 Hemoglobin 12.2 g/dL (12.0-16.0) 11/27/21 06:44 Hepatitis B Surface Antigen Negative s/c (NEGATIVE) 06/21/21 16 :11 Hepatitis C Antibody Negative s/c (NEGATIVE) 06/21/21 16:11 Rubella Antibody 178.0 IU/mL (>15) 06/21/21 16:11 Varicella-Zoster IgG Antibody 425 index (Immune >165) 06/21/21 16:11 Glucose 1 Hour 100 mg/dL (76-139) 08/22/21 16:45 Group B Streptococcus (PCR) Pos for grp b strep H 11/07/21 14:3 7 -: Chlamydia screen: negative, Gonorrhea screen: negative and Urine: negative -: PAP smear: Normal Genetic Screens: Quad screen: Normal External Labs -: Urine: negative Prior (ies) Past Pregnancies Del. Date GA/Weeks Labor Lgth Wt Sex Route Outcome Anesthesia Place Delv Breastfeed Preg Comp Name 11/02/07 38 14 7 lb 14 oz Female vaginal forceps vacuum live - full term epidural [place] 6 months none [place] 06/17/15 ?9 spontaneous [place] spontaneous 05/19/18 39.2 4 8 lb 4 oz Female vaginal live - full ter m epidural [facility] Jacobson 6 months other Evelina 09/15/18 9 spontaneous spontaneous 12/20/20 35.4 0 5 lb 12 oz Male live - [facility] in [place], [place] delivery Delivery Date: 11/02/07 Last Updated by: Lyric Mckinley R.N. *Borderline GDM. *Induction to enhance labor. *Episiotomy. *PPD : counselling support allergic to depression meds. Delivery Date: 06/17/15 Last Updated by: Lyric Mckinley R.N. *Hemorrhage : D&C with blood transfusion. *Unsure of exact dates. Delivery Date: 05/19/18 Last Updated by: Lyric Mckinley R.N. *Hyperemesis Gravidarum. *PPD - worse than the first time. Really rough. Delivery Date: 09/15/18 Last Updated by: Lyric Mckinley R.N. *Missed AB at 12 weeks. *D&C and blood transfusion. Delivery Date: 12/20/20 Last Updated by: Fátima Beal R.N. PPROM, breech, to C/S. Suspected intrauterine infection, but not confirmed. Later Had incisional infection, tx'd with antibiotics. Did OK with PP Depression, had enough support. Evaluation Evaluation Baseline heart rate: 140 Variability: Moderate (11-25) monitor accelerations: Present Monitor Decelerations: Absent Status: Category l [facility] Medical History (Updated 04/25/21 @ 14:06 by Johnna Jacobson MD) Anxiety Asthma Depression Foot fracture, left GERD (gastroesophageal reflux disease) H/O transfusion of packed red blood cells (~2015) HPV in female Migraines Pneumonia PTSD (post-traumatic stress disorder) Rh negative state in antepartum period Meehan-Jesus syndrome (spontaneous vaginal delivery) (~2007) (spontaneous vaginal delivery) (~2017) Surgical History (Updated 04/25/21 @ 14:06 by Johnna Jacobson MD) H/O colposcopy with cervical biopsy (~11/2017) H/O dilation and curettage (~2015) H/O dilation and curettage (~09/2018) H/O wisdom tooth extraction (~2018) History of section (~12/20/20) History of esophagogastroduodenoscopy (EGD) Hx laparoscopic cholecystectomy Family History Mother Depression Anxiety Panic attacks Father Arrhythmia Grandmother Diabetes mellitus Hypertension Arthritis Grandfather Adrenoleukodystrophy Grandmother Heart disease Grandfather Heart disease Altered cardiac tissue perfusion Sister Personality disorder Depression Panic attacks Anxiety Endometriosis H/O: hysterectomy Family/Other Diabetes mellitus Family/Other Altered cardiac tissue perfusion Social History marital status: number of children: 3 household members: spouse and children lives independently: Yes caregiver/support person: No pets and animals: Yes education level: college (Some : [employer]) occupational status: unemployed ([employer] current occupational exposures/hazards: No deepa/moravian: Mormonism special deepa needs: No seatbelt use: always do you feel safe at home: Yes Smoking Status: Never smoker second hand exposure: No alcohol intake: never substance use type: does not use during the past year weight has: decreased > 10 lbs well-balanced diet: daily or most days caffeine: No Type(s) of exercise: walking (with kids.) and normal ROM and activity (Homeschooling, busy with kids.) frequency: daily Meds Home Medications and Allergies Home Medications Medication Instructions Recorded Confirmed Type prenat.vits,yissel,afr-zoiy-kcbte 1 tab PO DAILY 12/08/18 11/27/21 History Allergies Allergy/AdvReac Type Severity Reaction Status Date / Time methylphenidate Allergy Severe Hives, Verified 11/21/21 08:43 [From Ritalin] Passing out. sertraline [From Zoloft] Allergy Severe Hives Verified 11/21/21 08:43 Sulfa (Sulfonamide Allergy Severe Full-Body Verified 11/21/21 08:43 Antibiotics) Rash hydroxyprogesterone Allergy Intermediate Hives Verified 11/21/21 08:43 [From [place]] lamotrigine [From Lamictal] AdvReac Severe SSRI's : Verified 11/21/21 08:43 Spencer Jesus's Syndrome; Hives OB Exam Narrative Exam Narrative: Generally: Patient is sitting up in bed, no acute distress Lungs: Clear to auscultation bilaterally Cardiovascular: Regular rate and rhythm Fundal height: 43 cm Estimated weight: 8 lb Extremities: 1+ edema, 1+ DTRs Objective Labs Result Diagrams: 11/27/21 06:44 Labs: Laboratory Results - last 24 hr 11/27/21 11/27/21 11/27/21 06:44 06:44 06:44 WBC 10.4 RBC 4.33 Hgb 12.2 Hct 36.1 MCV 83.4 MCH 28.1 MCHC 33.7 RDW 16.5 H Plt Count 173 Neut % (Auto) 70.0 Lymph % (Auto) 18.8 L Mora % (Auto) 8.1 Eos % (Auto) 2.6 Baso % (Auto) 0.5 Neut # (Auto) 7300 H Lymph # (Auto) 2000 Mora # (Auto) 800 Eos # (Auto) 300 Baso # (Auto) 0 SARS-CoV-2 (PCR) Negative Blood Type A Negative Antibody Screen Positive Assessment and Plan Assessment and Plan Assessment and Plan narrative: Assessment: 31-year-old 6 para 3 at 39 weeks gestation with a history of a section Plan: Repeat low-transverse section The risks, benefits, and alternatives to the procedure were explained to the patient. The risks including bleeding, infection, injury to the bowel, bladder, or ureters. She understands these risks and agrees to proceed. A full par Q was held and consent form was signed. Time Spent with Patient Total time spent with greater than 50% in coordination of care (as documented) at patient's floor/unit and/or counseling patient:: 15-24 minutes
--- NOTE | 2021-11-27 07:48 | PM.PREOP ---
Pre-operative Note COVID-19 COVID-19 status: Negative Result date/Date tested (Pos, Neg/Pending): 11/27/21 Criteria for continued procedure: Non-surgical alternatives not available or appropriate per current SOC Interval Note History & Physical reviewed/Exam performed by Physician: Yes Changes to H&P: No H&P completed within 30 days and has changed as indicated here:: 11/27/21
[2021-11-27] MEDS: CITRIC ACID/SODIUM CITRATE 15 ML SOLUTION 30 ML PO (07:55)
[2021-11-27] MEDS: ACETAMINOPHEN 325 MG TABLET 975 MG PO (07:55)
[2021-11-27] MEDS: LACTATED RINGERS 1,000 ML 1000 ML IV (08:05)
[2021-11-27] MEDS: CEFAZOLIN 2 GM/20 ML SYRINGE 3 GM IV (08:20)
--- NOTE | 2021-11-27 08:51 | SUR.OPER ---
Supine on Padded OR bed, head on pillow, safety belt at thigh, arms secured on padded arm boards at <90 degrees abduction. Bump under right buttock. Legs uncrossed with pillow under knees, gel pad to heels, tape over blanket to lower legs.
--- NOTE | 2021-11-27 08:53 | SUR.OPER ---
Viable baby boy was born at 0841 on 11/27/21. 2 sets of blood and placenta labelled and sent with the L&D nurse. Weight= 8 Ib.
--- NOTE | 2021-11-27 09:23 | P.OP_ITS ---
Operative Date/Time/Diagnoses Date of procedure: 11/27/21 Time of procedure: 09:23 Pre-op diagnosis: Thirty-nine weeks gestation Previous section Post-op diagnosis: same Procedure & Clinicians Procedure: Repeat low-transverse section Same procedure as scheduled: Yes Indications: 39 weeks gestation Previous section Surgeon: Johnna Lopez Yes if Unassisted: No Leaflet Distributor: Vale Davies Reason for Leaflet Distributor: Leaflet Distributor was necessary to retract on this obese patient upon entering the abdomen and uterus. She was necessary to assist in delivery of the . Upon closure she retracted and cut suture. She closed the contralateral fascia. Anesthesia Type: Spinal (With Duramorph) Operative Notes Findings: Live male in the [facility] presentation. Normal uterus and tubes Thin lower uterine segment Closure Type: primary Specimen(s): cord blood and placenta Intraoperative meds administered: Duramorph, Ketorolac, Pitocin and Tranexamic acid Applied: Catheter Estimated Blood Loss (mL): 600 Blood products transfused: none Procedure in detail: The patient was taken to the operating room where she was placed in the seated position. Spinal anesthesia with Duramorph was administered. The patient was then placed in the dorsal supine position with a leftward tilt. She was prepped and draped in the usual sterile fashion. A timeout was performed. After spinal analgesia was found to be adequate, a Pfannenstiel skin incision was made through the previous incision and carried through to the underlying layer of fascia. The fascia was nicked in the midline, and the incision extended bilaterally with the Salazar scissors. The superior aspect of the fascial incision was grasped with a [place] clamps, elevated, and the underlying rectus muscles dissected off sharply and bluntly. Attention was then turned to the inferior aspect of this incision which in a similar fashion was grasped with a [place] clamps, elevated, and the underlying rectus muscles dissected off sharply and bluntly. The rectus muscles were in the midline. The peritoneum was identified, grasped between 2 hemostats, and entered sharply with the Metzenbaum scissors. This incision was extended superiorly and inferiorly with good visualization of the bladder. A large Randal was placed into the incision. The vesicouterine peritoneum was identified and found to be very thin, grasped with the pickup, and entered sharply with the Metzenbaum scissors. This incision was extended bilaterally, and the bladder flap was created digitally. The lower uterine segment was incised in a transverse fashion with the scalpel. Upon entering the amniotic sac there was moderate amount of clear amniotic fluid. The infant's head was delivered with vacuum assistance. The nose and mouth were suctioned with bulb suction. The remainder of the body delivered without difficulty. The cord was double clamped and cut after 1 minute. The was handed off to waiting RN and RT. The placenta was delivered manually. The uterus was cleared of all clots and debris. The uterine incision was repaired with #1 chromic in a running interlocking fashion, and a second layer the same suture was used for an imbricating layer. Hemostasis was achieved. The tubes and ovaries were examined and were found to be normal. The gutters were cleared of all clots and debris. The parietal peritoneum was closed using 2-0 Vicryl in a running fashion. The fascia was reapproximated using 0 Vicryl in a running fashion. The subcutaneous layer was copiously irrigated with warm normal saline. 5 simple interrupted sutures of 3-0 Vicryl were placed to reapproximate the subcutaneous layer. The skin was closed with 4-0 Monocryl in a subcuticular fashion. Steri-Strips were placed. An Aquacel dressing was placed. The uterus was expressed of a small amount of old blood. Sponge, lap, and instrument counts were correct x-2. The patient tolerated the procedure well, and was taken to PACU in stable condition. Complications: none Rice Baby 1: Gender: Male Presentation: vertex Position: Right Occiput Anterior Placental Delivery Description: Expressed Cord Vessel Description: 3 Vessels and Clamped/Cut (After 1 minute) score (1 min): 8 score (5 min): 9 weight: 8 lb Post-operative Condition: stable Disposition: PACU Aftercare: routine postop
[2021-11-27] MEDS: ONDANSETRON 4 MG/2 ML INJ IV ×3 (09:33→16:37)
--- NOTE | 2021-11-27 09:43 | SUR.PHASEI ---
Nauseated, was given IV and aromatherapy, states that she is feeling better but that it is not resolved. Able to smile and converse without difficulty
[2021-11-27] MEDS: METOCLOPRAMIDE 10 MG/2 ML INJ IV ×2 (09:46→14:28)
[2021-11-27] MEDS: OXYTOCIN IV (09:48)
[2021-11-27] MEDS: LACTATED RINGERS IV (09:48)
[2021-11-27] MEDS: TRANEXAMIC ACID 1,000 MG in SODIUM CHLORIDE 0.9% 100 ML 200 MG IV (09:59)
--- NOTE | 2021-11-27 10:15 | SUR.PHASEI ---
1009 to OB, stable, pleasant, still feels a little queasy, but improved, no wretching or emesis. Pleasant. Report called to floor including medications in IV and given in PACU.
[2021-11-27] MEDS: KETOROLAC 30 MG/ML VIAL IV ×2 (15:33→21:31)
[2021-11-27] MEDS: NALOXONE 0.4 MG/ML VIAL IV (18:00)
[2021-11-28] MEDS: ACETAMINOPHEN 325 MG TABLET 650 MG PO ×3 (01:55→16:38)
[2021-11-28 06:59] LABS: Hematocrit 30.2 % (36-46); Hemoglobin 10.4 g/dL (12.0-16.0)
[2021-11-28] MEDS: IBUPROFEN 600 MG TABLET PO ×2 (10:16→16:37)
[2021-11-28] MEDS: PRENATAL VIT,CALC/IRON/FOLIC 1 TABLET 1 TAB PO (10:19)
[2021-11-28] MEDS: DOCUSATE 100 MG CAPSULE 200 MG PO (10:21)
[2021-11-28] MEDS: OXYCODONE IR 5 MG TABLET PO ×2 (12:41→16:37)
--- NOTE | 2021-11-28 13:11 | PM.OBDS.1 ---
Discharge Providers Provider Date of admission: 11/27/21 05:41 Discharge Date: 11/28/21 Primary care physician: Doctor Moirs MD Consults: 11/27/21 10:09 Consult to Pricing Manager Routine Comment: Discharge provider: Johnna Jacobson MD Summary Hospital Course Date Patient Seen: 11/28/21 Time Patient Seen: 13:11 Diagnoses: Thirty-nine weeks gestation Previous section Repeat low-transverse section Hospital Course: Patient is a 31-year-old 6 para 4 who presented for a scheduled repeat low-transverse section on November 28, 2019. She underwent this procedure without complication. Her course was unremarkable. She was discharged home on day # 1. She is to follow-up in 1 week for Aquacel dressing removal. She is to follow-up in 6 weeks for her exam Peripartum Data Infant Delivery Method: Section (Repeat) Laceration Description: None Episiotomy description: None Procedures: Spinal anesthesia Repeat low-transverse section complications: none 1: Gender: Male Disposition of : home Status at Discharge Cognitive/behavioral status at discharge: oriented Functional status at discharge: independent ambulation Overall status at discharge: patient is progressing back to baseline Time Spent with Patient Time attestation: Total time spent providing and/or coordinating discharge services: Time spent: Less than 30 minutes Objective Labs Result Diagrams: 11/28/21 06:40 Labs: Laboratory Results - last 24 hr 11/28/21 11/28/21 06:40 06:40 Hgb 10.4 L Hct 30.2 L Maternal Bleed Negative Exam Vital Signs (past 8 hours): Oxygen Delivery Method Room Air Narrative Exam Narrative: Generally: Patient sitting up in bed, nursing , no acute distress Lungs: Clear to auscultation bilaterally Cardiovascular: Regular rate and rhythm Fundus: Firm at U Extremities: 1+ edema, negative Homans Discharge Plan Discharge Plan Patient Disposition: Home Provider Discharge Comment: Call with fever, chills, redness or drainage around the incision, or bleeding vaginally more than a pad in an hour. Ibuprofen 600 mg every 6 hours as needed Tylenol 650 mg every 6 hours as needed Discharge orders & Medications Prescriptions: New oxycodone 5 mg tablet 5 mg PO Q4H PRN (Reason: pain) Qty: 20 0RF Continued prenat.vits,yissel,ris-odfc-bivnp tablet 1 tab PO DAILY Follow up/Referrals: Johnna Jacobson MD [Physician] - 12/05/21 1:00 pm (6 week followup appointment on 01/11/22 at 1:45pm) Diet/Activity/Treatments Diet: Regular Activity: No heavy lifting Nothing in the vagina for 6 weeks Skin/Wound/Dressing Care Report to your healthcare provider any signs of infection, such as:: chills, fever, increased pain, unusual drainage and unusual redness Dressing: Do not remove Visit Report/Discharge Packet Instructions: DI for , DI for Prescription Opioid Use Discharge Data Primary Care Provider: Miscellaneous,Doctor
== END 2021-11-28 17:50 | disposition home or self-care (01) | DRG 540 ==
PROVIDERS: Admitting Provider Obstetrics & Gynecology; Referring Provider Obstetrics & Gynecology; Visit Provider Obstetrics & Gynecology
PROC: 10D00Z1 Extraction of Products of Conception, Low, Open Approach (ICD-10-PCS; CPT 59514; principal; 2021-11-27 07:45)
DX: O34.211 Maternal care for low transverse scar from previous cesarean delivery (principal); Z3A.39 39 weeks gestation of pregnancy; Z37.0 Single live birth; O36.0130 Maternal care for anti-D [Rh] antibodies, third trimester, not applicable or unspecified; O99.824 Streptococcus B carrier state complicating childbirth; O99.891 Other specified diseases and conditions complicating pregnancy; J45.20 Mild intermittent asthma, uncomplicated; K21.9 Gastro-esophageal reflux disease without esophagitis; O99.344 Other mental disorders complicating childbirth; F41.9 Anxiety disorder, unspecified; F32.A Depression, unspecified; F43.10 Post-traumatic stress disorder, unspecified; Z20.822 Contact with and (suspected) exposure to COVID-19
CPT/HCPCS: 36415; 59050; 59514; 85014; 85018; 85025; 85461; 86850; 86870; 86900; 86901; 87635; C9803; J0690; J1885; J2274; J2310; J2405; J2590; J2765